=== PATIENT | female | born 1965 | race Caucasian/White ===

== ENCOUNTER → 2022-03-03 | Outpatient (CLI) | payer OTHER, SELFPAY ==
[2022-03-03 10:09] LABS: Absolute Lymphocyte Count 3.59 X10^3/uL (0.83-4.51); Basophil# 0.06 X10^3/uL; Basophil% 0.6 % (0-1); Eosinophil# 0.19 X10^3/uL; Hematocrit 41.5 % (37-47); Hemoglobin 13.6 g/dL (12.0-15.0); Lymphocyte # 3.59 X10^3/ul (0.83-4.51); Lymphocyte % 37.7 % (19-41); Mean Corp Hgb Conc 32.8 g/dL (32-36); Mean Corpuscular Hgb 29.3 pg (27.0-32.0); Mean Corpuscular Volume 89.4 fL (81-99); Mean Platelet Vol. 11.5 fl (6.2-12.0); Monocyte# 0.59 X10^3/uL; Monocyte% 6.2 % (0-10); NRBC Flagged by Analyzer 0 % (0-5); Neutrophil # 5.04 X10^3/uL (2.7-7.7); Neutrophil % 53.1 % (47-70); Platelet Count 326 K/mm3 (150-450); RBC Distribution Width CV 11.9 % (11.6-14.6); RBC Distribution Width SD 38.7 fl (35.1-43.9); Red Blood Count 4.64 M/mm3 (4.2-5.4); White Blood Count 9.5 K/mm3 (4.4-11.0)
[2022-03-03 10:48] LABS: AST(SGOT) 15 U/L (15-37); Alanine Aminotransfer ALT/SGPT 24 U/L (13-56); Albumin, Serum 3.5 g/dL (3.2-5.0); Alkaline Phosphatase 64 U/L (45-117); Anion Gap 9 (5-15); BUN 11 mg/dL (7-18); BUN/Creat Ratio 13.4 RATIO (10-20); Calcium,Total 8.8 mg/dL (8.5-10.1); Chloride 102 mmol/L (98-107); Cholesterol 215 mg/dL (200); Creatinine, Serum 0.82 mg/dL (0.55-1.02); EST Glomerular Filtration Rate 76 mL/min (>60); Est Glom Filt Rate - Afr Amer 92 mL/min (>60); Globulin 3.6 g/dL (2.2-4.2); Glucose 185 mg/dL (74-106); Hemoglobin A1c 7.2 % (3.8-5.6); High Density Lipoprotein 59 mg/dL; Potassium 4.2 mmol/L (3.5-5.1); Protein, Total 7.1 g/dL (6.4-8.2); Sodium Level 134 mmol/L (136-145); Thyroid Stim Hormone (TSH) 4.49 uIU/mL (0.358-3.74); Triglycerides 138 mg/dL; Very Low Density Lipoprotein 28 mg/dL (5-40)
[2022-03-05 16:40] LABS: Free T3 2.5 pg/mL (2.18-3.98); T4 Free Direct 1.18 ng/dL (0.76-1.46)
== END | disposition home or self-care (01) ==
LOC: MFPLAB 08:03
PROVIDERS: PCP Family Medicine; Referring Provider Family Medicine; Visit Provider Family Medicine
DX: R79.89 Other specified abnormal findings of blood chemistry (principal); I10 Essential (primary) hypertension
CPT/HCPCS: 36415; 80053; 80061; 83036; 84432; 84439; 84443; 84481; 85025; 86376; 86800

== ENCOUNTER → 2022-03-17 | Outpatient (CLI) | payer OTHER, SELFPAY ==
[2022-03-17 11:32] LABS: Free T3 2.1 pg/mL (2.18-3.98); T4 Free Direct 1.08 ng/dL (0.76-1.46); Thyroid Stim Hormone (TSH) 3.47 uIU/mL (0.358-3.74)
[2022-03-27 22:22] LABS: Anti-Thyroglobulin AB 2.2 IU/mL (0.0-0.9); Thyroglobulin RIA 24 ng/mL (.); Thyroid Peroxidase AB 52 IU/mL (0-34)
== END | disposition home or self-care (01) ==
LOC: MFPLAB 08:11
PROVIDERS: PCP Family Medicine; Referring Provider Family Medicine; Visit Provider Family Medicine
DX: R79.89 Other specified abnormal findings of blood chemistry (principal)
CPT/HCPCS: 36415; 84432; 84439; 84443; 84481; 86376; 86800

== ENCOUNTER → 2022-05-19 | Outpatient (CLI) | payer OTHER, SELFPAY ==
[2022-05-19 10:53] LABS: Thyroid Stim Hormone (TSH) 3.52 uIU/mL (0.358-3.74)
== END | disposition home or self-care (01) ==
LOC: MTLAB 07:45
PROVIDERS: PCP Family Medicine; Referring Provider Family Medicine; Visit Provider Family Medicine
DX: E03.9 Hypothyroidism, unspecified (principal)
CPT/HCPCS: 36415; 84443

== ENCOUNTER → 2022-07-02 | Outpatient (CLI) | payer OTHER, SELFPAY ==
[2022-07-02 10:38] LABS: T4 Free Direct 1.15 ng/dL (0.76-1.46)
== END | disposition home or self-care (01) ==
LOC: MTLAB 08:03
PROVIDERS: PCP Family Medicine; Referring Provider Family Medicine; Visit Provider Family Medicine
DX: E03.9 Hypothyroidism, unspecified (principal)
CPT/HCPCS: 36415; 84439; 84443

== ENCOUNTER → 2023-04-23 | Outpatient (CLI) | payer OTHER, SELFPAY ==
[2023-04-23 11:33] LABS: T4 Free Direct 1.19 ng/dL (0.76-1.46); Thyroid Stim Hormone (TSH) 2.19 uIU/mL (0.358-3.74)
== END | disposition home or self-care (01) ==
LOC: MTLAB 09:31
PROVIDERS: PCP Family Medicine; Referring Provider Family Medicine; Visit Provider Family Medicine
DX: E03.9 Hypothyroidism, unspecified (principal)
CPT/HCPCS: 36415; 84439; 84443

== ENCOUNTER → 2023-11-26 | Outpatient (CLI) | payer OTHER, SELFPAY ==
[2023-11-26 10:35] LABS: Absolute Lymphocyte Count 3.05 X10^3/uL (0.83-4.51); Absolute Neutrophil Count 4.2 X10^3/uL (2.0-7.7); Basophil# 0.03 X10^3/uL; Basophil% 0.4 % (0-1); Eosinophil# 0.24 X10^3/uL; Hematocrit 39.3 % (37-47); Hemoglobin 12.4 g/dL (12.0-15.0); Lymphocyte # 3.05 X10^3/ul (0.83-4.51); Lymphocyte % 37.5 % (19-41); Mean Corp Hgb Conc 31.6 g/dL (32-36); Mean Corpuscular Hgb 29.2 pg (27.0-32.0); Mean Corpuscular Volume 92.7 fL (81-99); Mean Platelet Vol. 11.3 fl (6.2-12.0); Monocyte# 0.57 X10^3/uL; NRBC Flagged by Analyzer 0 % (0-5); Neutrophil # 4.22 X10^3/uL (2.7-7.7); Neutrophil % 51.9 % (47-70); Platelet Count 303 K/mm3 (150-450); RBC Distribution Width CV 12.3 % (11.6-14.6); RBC Distribution Width SD 41.5 fl (35.1-43.9); Red Blood Count 4.24 M/mm3 (4.2-5.4); White Blood Count 8.1 K/mm3 (4.4-11.0)
[2023-11-26 11:24] LABS: Vitamin D,25 Hydroxy 30.8 ng/mL
[2023-11-26 11:45] LABS: AST(SGOT) 18 U/L (15-37); Alanine Aminotransfer ALT/SGPT 18 U/L (13-56); Albumin, Serum 3.5 g/dL (3.2-5.0); Alkaline Phosphatase 52 U/L (45-117); Anion Gap 6 (5-15); BUN 14 mg/dL (7-18); BUN/Creat Ratio 18.1 RATIO (10-20); Chloride 104 mmol/L (98-107); Cholesterol 120 mg/dL (200); Creatinine, Serum 0.77 mg/dL (0.55-1.02); EST Glomerular Filtration Rate 81 mL/min (>60); Est Glom Filt Rate - Afr Amer 98 mL/min (>60); Globulin 3.4 g/dL (2.2-4.2); Glucose 108 mg/dL (74-106); High Density Lipoprotein 54 mg/dL; Potassium 4.1 mmol/L (3.5-5.1); Protein, Total 6.9 g/dL (6.4-8.2); Sodium Level 136 mmol/L (136-145); Triglycerides 95 mg/dL; Very Low Density Lipoprotein 19 mg/dL (5-40)
== END | disposition home or self-care (01) ==
LOC: MTLAB 07:51
PROVIDERS: PCP Family Medicine; Referring Provider Family Medicine; Visit Provider Family Medicine
DX: I10 Essential (primary) hypertension (principal); E03.8 Other specified hypothyroidism
CPT/HCPCS: 36415; 80053; 80061; 82306; 84443; 85025

== ENCOUNTER → 2024-12-08 | Outpatient (CLI) | payer OTHER, SELFPAY ==
[2024-12-08 14:59] LABS: Hematocrit 39.0 % (37-47); Hemoglobin 12.8 g/dL (12.0-15.0); Mean Corp Hgb Conc 32.8 g/dL (32-36); Mean Corpuscular Volume 92.6 fL (81-99); Mean Platelet Vol. 11.2 fl (6.2-12.0); Platelet Count 336 K/mm3 (150-450); RBC Distribution Width CV 11.9 % (11.6-14.6); RBC Distribution Width SD 40.4 fl (35.1-43.9); Red Blood Count 4.21 M/mm3 (4.2-5.4); White Blood Count 8.9 K/mm3 (4.4-11.0)
[2024-12-08 15:51] LABS: AST(SGOT) 20 U/L (<=31); Alanine Aminotransfer ALT/SGPT 11 U/L (<=34); Albumin, Serum 4.2 g/dL (3.4-4.8); Alkaline Phosphatase 67 U/L (35-104); Anion Gap 11 (5-15); BUN 6 mg/dL (4-19); BUN/Creat Ratio 8.5 RATIO (10-20); Calcium,Total 9.4 mg/dL (7.6-11.0); Carbon Dioxide 24.8 mmol/L (21.0-32.0); Chloride 102 mmol/L (98-108); Cholesterol 135 mg/dL (<=200); Globulin 3.0 g/dL (2.2-4.2); Glucose 93 mg/dL (70-99); Low Density Lipoprotein Calc. 56 mg/dL; Potassium 3.8 mmol/L (3.3-5.1); Triglycerides 105 mg/dL; Very Low Density Lipoprotein 21 mg/dL (5-40); Vitamin D,25 Hydroxy 44.3 ng/mL (30-100); cholesterol:hdl ratio screen 2.27
[2024-12-08 18:04] LABS: Creatinine, Urine (random) 184.00 mg/dL (28.00-217.00); Microalbumin,Random Urine < 12.0 mg/L (<20 mg/L)
== END | disposition home or self-care (01) ==
LOC: MFPLAB 11:42
PROVIDERS: PCP Family Medicine; Visit Provider Family Medicine
DX: I10 Essential (primary) hypertension (principal); E03.8 Other specified hypothyroidism
CPT/HCPCS: 36415; 80053; 80061; 82043; 82306; 82570; 84443; 85027